=== PATIENT | female | born 1950 | race Caucasian/White ===

== ENCOUNTER → 2016-11-14 | Outpatient (CLI) | payer MEDICARE, OTHER ==
[~2016-11-14] MED LIST: ASPIR 8181 MG PO; CLONIDINE1 EAC1 TD; COREG 12.5MG12.5 MG PO; CRESTOR10 MG PO; GLUCOPHAGE500 MG PO; HYDRALAZINE HC100 MG PO; IMDUR ER TAB 6060 MG PO; LANSOPRAZOLE30 MG PO; LASIX20 MG PO; LISINOPRIL40 MG PO; NORVASC 5 MG TAB5 MG PO; PLAVIX 75 MG TA75 MG PO; TENORMIN 25 MG25 MG PO
== END ==
LOC: HEART CORB 09:28
DX: I25.10 Atherosclerotic heart disease of native coronary artery without angina pectoris (principal); R06.02 Shortness of breath; R07.2 Precordial pain
CPT/HCPCS: 78452; 93306; A9502; J2785